=== PATIENT | male | born 1935 | race Caucasian/White ===

== ENCOUNTER 2016-09-01 09:40 | Outpatient (CLI) | payer MEDICARE ==
[2016-09-01 12:43] LABS: Bilirubin Negative (Negative); Blood, Urine Trace (Negative); Glucose, Urine (Dipstick) Negative (Negative); Ketone, Urine Negative (Negative); Nitrite Negative (Negative); Protein, Urine (Dipstick) Negative (Neg-Trace); Urobilinogen 0.2 mg/dL (0.2-1.0)
[2016-09-01 13:03] LABS: ALT (SGPT) 18 U/L (0-55); AST (SGOT) 15 U/L (5-34); Alkaline Phosphatase 63 U/L (40-150); Anion Gap 15 mmol/L (10-20); BUN (Urea Nitrogen) 12 mg/dL (8.4-25.7); Bilirubin, Total 0.7 mg/dL (0.2-1.2); Calc. Creatinine Clearance 0 mL/min (70-130); Calcium 9.2 mg/dL (7.8-10.44); Carbon Dioxide 26 mmol/L (23-31); Chloride 103 mmol/L (98-107); Estimated GFR-MDRD Greater than 90; Globulin 2.7 g/dL (2.4-3.5); LDL Cholesterol, Calculated 100 mg/dL; Protein, Total 7.1 g/dL (5.8-8.1)
[2016-09-01 13:12] LABS: Hemoglobin A1c 7.1 % (4.0-6.0)
[2016-09-01 13:25] LABS: Bacteria/HPF Rare-Few HPF (None Seen); RBC/HPF 0-3 HPF (0-3); Squamous Epithelial 0-3 HPF (0-3); WBC/HPF 0-3 HPF (0-3)
[2016-09-01 14:09] LABS: Band 2 % (5-11); Hematocrit 44.7 % (42.0-52.0); Mean Platelet Volume 9.2 fL (7.4-10.4); Neutrophil 57 % (42-75); Red Blood Cell (RBC) Count 4.87 mill/uL (4.70-6.10); White Blood Cell (WBC) Count 6.2 thou/uL (4.8-10.8)
== END 2016-09-01 09:41 | disposition home or self-care (01) ==
LOC: NAVSJIPCSP 09:40
PROVIDERS: ATTEND Internal Medicine
DX: E78.5 Hyperlipidemia, unspecified (principal); E11.9 Type 2 diabetes mellitus without complications; I11.9 Hypertensive heart disease without heart failure; I48.2 Chronic atrial fibrillation; Z79.899 Other long term (current) drug therapy
CPT/HCPCS: 36415; 80053; 80061; 81003; 81015; 83036; 85025

== ENCOUNTER 2016-12-01 10:20 | Outpatient (CLI) | payer MEDICARE ==
[2016-12-01 13:03] LABS: Hemoglobin A1c 7.5 % (4.0-6.0)
[2016-12-01 13:38] LABS: Cardiac Risk 4.3 (Less than 4.5)
== END 2016-12-01 10:21 | disposition home or self-care (01) ==
LOC: NAVSJIPCSP 10:20
PROVIDERS: ATTEND Internal Medicine
DX: E78.5 Hyperlipidemia, unspecified (principal); E11.9 Type 2 diabetes mellitus without complications; Z79.899 Other long term (current) drug therapy
CPT/HCPCS: 36415; 80061; 83036

== ENCOUNTER 2017-03-03 09:13 | Outpatient (CLI) | payer MEDICARE ==
[2017-03-03 12:48] LABS: Cardiac Risk 4.6 (Less than 4.5)
[2017-03-03 12:50] LABS: Hemoglobin A1c 7.9 % (4.0-6.0)
== END 2017-03-03 09:14 | disposition home or self-care (01) ==
LOC: NAVSJIPCSP 09:13
PROVIDERS: ATTEND Internal Medicine
DX: E78.5 Hyperlipidemia, unspecified (principal); E11.9 Type 2 diabetes mellitus without complications
CPT/HCPCS: 36415; 80061; 83036

== ENCOUNTER 2018-09-17 16:56 | Emergency (ER) | payer MEDICARE ==
[2018-09-17] MEDS ORDERED: Ondansetron PF 4 MG/2 ML Vial ONE (17:40)
[2018-09-17 18:07] LABS: ALT (SGPT) 18 U/L (8-55); AST (SGOT) 20 U/L (5-34); Alkaline Phosphatase 62 U/L (40-150); Anion Gap 16 mmol/L (10-20); BUN (Urea Nitrogen) 11 mg/dL (8.4-25.7); Bilirubin, Total 0.5 mg/dL (0.2-1.2); CK (CPK) 62 U/L (30-200); Calc. Creatinine Clearance 0 mL/min (70-130); Calcium 9.1 mg/dL (7.8-10.44); Carbon Dioxide 21 mmol/L (23-31); Chloride 101 mmol/L (98-107); Estimated GFR-MDRD Greater than 90; Glucose 147 mg/dL (83-110); Lipase 25 U/L (8-78); Potassium 3.5 mmol/L (3.5-5.1); Sodium 134 mmol/L (136-145)
[2018-09-17 18:08] LABS: Hemoglobin 13.2 g/dL (14.0-18.0); Mean Corpuscular HGB CONC 32.7 g/dL (32.0-36.0); Mean Corpuscular Hemoglobin 29.7 pg (27.0-31.0); Mean Corpuscular Volume 90.8 fL (78.0-98.0); Mean Platelet Volume 8.9 fL (7.4-10.4); Platelet Count 143 thou/uL (130-400); RBC Distribution Width 13.4 % (11.5-14.5); Red Blood Cell (RBC) Count 4.43 mill/uL (4.70-6.10)
[2018-09-17] MEDS ORDERED: Oseltamivir 75 MG CAP ONE (18:23)
[2018-09-17 18:25] LABS: Band 4 % (5-11); Eosinophils 2 % (0-10); Lymphocytes 16 % (21-51); MDiff Complete? YES; Monocytes 6 % (0-10); Neutrophil 72 % (42-75); Platelet Morphology Comment Appears Adequate; RBC Morphology Normal
[2018-09-17 18:36] LABS: Bilirubin Negative (Negative); Blood, Urine Small (Negative); Clarity Clear (Clear); Glucose, Urine (Dipstick) Negative (Negative); Leukocyte Negative (Negative); Nitrite Negative (Negative); Protein, Urine (Dipstick) 30 mg/dL (Neg-Trace); Urobilinogen 0.2 mg/dL (0.2-1.0)
[2018-09-17 18:38] LABS: Bacteria/HPF Rare-Few HPF (None Seen); RBC/HPF 0-3 HPF (0-3); Squamous Epithelial 0-3 HPF (0-3); WBC/HPF None Seen HPF (0-3)
--- NOTE | 2018-09-17 18:40 | RAD ---
CHEST TWO VIEWS: 09/17/18 INDICATION: Cough. COMPARISON: None. FINDINGS: There is mild subsegmental volume loss left lower lobe. Otherwise the exam reveals no acute abnormali ty. Heart size is within normal limits. No pneumo thorax or pleural effusion is evident. No acute oss eous abnormality. IMPRESSION: Nonspecific subsegmental volume loss within the left lower lobe. POS: DIANE
== END 2018-09-17 18:30 | disposition home or self-care (01) ==
LOC: NAV ERS 16:56
DX: J11.1 Influenza due to unidentified influenza virus with other respiratory manifestations (principal); I10 Essential (primary) hypertension; E11.9 Type 2 diabetes mellitus without complications; Z79.899 Other long term (current) drug therapy; Z79.01 Long term (current) use of anticoagulants; Z79.84 Long term (current) use of oral hypoglycemic drugs
CPT/HCPCS: 36416; 71046; 80053; 81003; 81015; 82550; 83605; 83690; 83880; 84484; 85025; 87804; 93005; 96374; J2405

== ENCOUNTER 2019-12-26 13:08 | Outpatient (CLI) | payer MEDICARE ==
--- NOTE | 2019-12-26 13:47 | RAD ---
EXAM: 3 views of the lumbosacral spine HISTORY: Low back pain COMPARISON: None FINDINGS: 3 views of the lumbosacral spine shows normal alignment of the vertebral bodies and interve rtebral discs without subluxation. Intervertebral disc space narrowing and osteophytes are seen throughout the lumbar spine. There is slight wedging of the L1 vertebral body with approximately 10% height loss. The sacroiliac joints are unremarkable. Vascular calcifications are seen in the aorta. IMPRESSION: Moderate degenerative changes of the lumbar spine
--- NOTE | 2019-12-26 13:51 | RAD ---
EXAM: 2 views of the left hip HISTORY: Left hip pain COMPARISON: None FINDINGS: 2 views of the left hip shows no evidence of acute fracture or dislocation. No degenerative changes are seen. No soft tissue swelling is present. IMPRESSION: No evidence of acute osseous abnormality.
== END 2019-12-26 13:09 | disposition home or self-care (01) ==
LOC: NAV RAD 13:08
PROVIDERS: ATTEND Internal Medicine
DX: M54.5 Low back pain (principal); M47.816 Spondylosis without myelopathy or radiculopathy, lumbar region
CPT/HCPCS: 72100

== ENCOUNTER 2024-02-14 00:41 | Emergency (ER) | payer MEDICARE ==
[2024-02-14 01:18] LABS: #Eosinphils 0.1 thou/uL (0.0-0.7); #Lymphocytes 1.1 thou/uL (1.20-3.40); #Monocytes 0.8 thou/uL (0.11-0.59); #Neutrophils 4.8 thou/uL (1.40-6.50); %Basophils 0.6 % (0.0-1.0); %Eosinophils 1.5 % (0.0-10.0); %Lymphocytes 15.7 % (21.0-51.0); %Monocytes 11.7 % (0.0-10.0); %Neutrophils 70.5 % (42.0-75.0); Hematocrit 34.3 % (42.0-52.0); Mean Corpuscular Volume 87.6 fl (78.0-98.0); Mean Platelet Volume 8.2 fL (7.4-10.4); Platelet Count 169 10x3/uL (130-400); RBC Distribution Width 13.3 % (11.5-14.5); Red Blood Cell (RBC) Count 3.92 mill/uL (4.70-6.10); White Blood Cell (WBC) Count 6.8 10x3/uL (4.8-10.8)
[2024-02-14 01:37] LABS: ALT (SGPT) 15 U/L (8-55); AST (SGOT) 15 U/L (5-34); Albumin 3.5 g/dL (3.4-4.8); Alkaline Phosphatase 60 U/L (40-110); Anion Gap 13 mmol/L (10-20); BUN (Urea Nitrogen) 22 mg/dL (8.4-25.7); Bilirubin, Total 0.5 mg/dL (0.2-1.2); Calc. Creatinine Clearance 0 mL/min (70-130); Carbon Dioxide 24 mmol/L (23-31); Chloride 104 mmol/L (98-107); Estimated GFR 59; Globulin 3.1 g/dL (2.4-3.5); Glucose 158 mg/dL (83-110); Potassium 3.2 mmol/L (3.5-5.1); Protein, Total 6.6 g/dL (5.8-8.1); Sodium 138 mmol/L (136-145)
[2024-02-14 01:41] LABS: Troponin I Less than 0.010 ng/mL (< 0.028)
[2024-02-14] MEDS ORDERED: Potassium Chloride 20 MEQ TAB ONE (02:01)
[2024-02-14 02:21] LABS: INR-International Normal Ratio 1.3; Prothrombin Time 16.4 sec (12.0-14.7)
[2024-02-14 02:22] LABS: PTT 41.2 sec (22.9-36.1)
[2024-02-14 02:27] LABS: Bilirubin Negative (Negative); Blood, Urine Negative (Negative); Clarity Clear (Clear); Glucose, Urine (Dipstick) Negative (Negative); Ketone, Urine Trace mg/dL (Negative); Leukocyte Negative (Negative); Nitrite Negative (Negative); Protein, Urine (Dipstick) Trace mg/dL (Neg-Trace); Specific Gravity, Urine 1.025 (1.005-1.030); Urobilinogen 0.2 mg/dL (Less than 2); pH, Urine 5.5 (5.0-9.0)
[2024-02-14 02:37] LABS: Bacteria/HPF Rare-Few HPF (None Seen); CAUTI Indications for Culture Alt mental st,lethar; RBC/HPF 0-3 HPF (0-3); Squamous Epithelial 0-3 HPF (0-3); Transitional Epithelial 0-3 HPF (None Seen); Urine Culture Reflex No No; WBC/HPF 0-3 HPF (0-3)
== END 2024-02-14 03:14 | disposition home or self-care (01) ==
LOC: NAV ERS 00:41
DX: S50.311A Abrasion of right elbow, initial encounter (principal); E11.649 Type 2 diabetes mellitus with hypoglycemia without coma; H40.10X0 Unspecified open-angle glaucoma, stage unspecified; I10 Essential (primary) hypertension; I48.91 Unspecified atrial fibrillation; E78.00 Pure hypercholesterolemia, unspecified; D50.9 Iron deficiency anemia, unspecified; F03.90 Unspecified dementia, unspecified severity, without behavioral disturbance, psychotic disturbance, mood disturbance, and anxiety; W06.XXXA Fall from bed, initial encounter; Z55.6 Problems related to health literacy; Z79.899 Other long term (current) drug therapy; Z79.01 Long term (current) use of anticoagulants; Z79.84 Long term (current) use of oral hypoglycemic drugs
CPT/HCPCS: 36416; 51701; 70450; 71045; 72125; 72170; 80053; 81001; 83880; 84484; 85025; 85610; 85730; 93005